=== PATIENT | female | born 1970 | race Caucasian/White ===

== ENCOUNTER → 2021-01-11 12:39 | Outpatient (BNVA) | payer MEDICAID, SELFPAY | PROVIDERS: PCP Nurse Practitioner Family; Visit Provider Emergency Medicine | DX: M25.522 Pain in left elbow (principal) | CPT/HCPCS: 73080 ==

== ENCOUNTER → 2021-02-03 10:42 | Outpatient (BNVA) | payer MEDICAID, SELFPAY | PROVIDERS: PCP Nurse Practitioner Family; Visit Provider Nurse Practitioner Family | DX: M25.532 Pain in left wrist (principal); M25.432 Effusion, left wrist | CPT/HCPCS: 73100 ==

== ENCOUNTER → 2021-05-07 10:08 | Outpatient (BNVA) | payer MEDICAID, SELFPAY | PROVIDERS: PCP Nurse Practitioner Family; Visit Provider Emergency Medicine | DX: M79.644 Pain in right finger(s) (principal) | CPT/HCPCS: 73130 ==

== ENCOUNTER → 2021-08-11 10:16 | Outpatient (BNVA) | payer MEDICAID, SELFPAY | PROVIDERS: PCP Nurse Practitioner Family; Visit Provider Nurse Practitioner Family | DX: Z20.822 Contact with and (suspected) exposure to COVID-19 (principal) | CPT/HCPCS: 87635 ==

== ENCOUNTER → 2022-03-04 09:35 | Outpatient (BNVA) | payer MEDICAID, SELFPAY | PROVIDERS: PCP Nurse Practitioner Family; Visit Provider Emergency Medicine | DX: M25.561 Pain in right knee (principal) | CPT/HCPCS: 73562 ==

== ENCOUNTER → 2022-07-16 10:38 | Outpatient (BNVA) | payer MEDICAID, SELFPAY | PROVIDERS: PCP Family Medicine; Visit Provider Family Medicine | DX: M25.512 Pain in left shoulder (principal) | CPT/HCPCS: 73030 ==

== ENCOUNTER → 2022-07-21 10:36 | Outpatient (BNVA) | payer MEDICAID, SELFPAY | PROVIDERS: PCP Family Medicine; Visit Provider Student in an Organized Health Care Education/Training Program | DX: M75.102 Unspecified rotator cuff tear or rupture of left shoulder, not specified as traumatic (principal) | CPT/HCPCS: 99203 ==

== ENCOUNTER 2022-09-11 10:08 | Outpatient (CLI) | payer MEDICAID, SELFPAY ==
--- NOTE | 2022-09-11 11:00 | MR_ITS ---
WS: [id number] MRI LEFT SHOULDER HISTORY: left shoulder pain, limited range of motion. No injury. COMPARISON: Radiograph 07/16/2022 TECHNIQUE: Multiplanar sequences of the shoulder joint are submitted. Mild narrowing of the AC joint. Osteophyte from the distal inferior clavicle encroaches upon the supr aspinatus myotendinous insertion with deformity. Significant impingement and deformity. No significan t subacromial impingement. No os acromion. Normal position of the biceps tendon. There is increased T 2 signal within the tendon consistent with a split tear at the bicipital groove. Moderate tendinopathy and thickening involving the supraspinatus tendon beginning distal to the encro achment by the clavicular osteophyte. Most significant tendinopathy at the insertion site. Fraying al mervin the articular surface. No muscle atrophy or edema. Intrasubstance degeneration in the anterior an d superior labrum. No definite tear is identified. MR/MR shoulder LT wo con* [id number] IMPRESSION: 1. Distal clavicular osteophyte encroaching upon the myotendinous insertion porras praspinatus tendon with deformity. 2. Moderate tendinopathy distal supraspinatus tendon. 3. Split tear biceps tendon in the bicipital groove. 4. Intrasubstance degeneration involving the anterior superior labrum. Cannot confirm tear.
== END 2022-09-11 10:09 | disposition home or self-care (01) ==
LOC: RAD 10:10
PROVIDERS: PCP Family Medicine; Visit Provider Student in an Organized Health Care Education/Training Program
DX: G89.29 Other chronic pain (principal); M25.512 Pain in left shoulder; M25.712 Osteophyte, left shoulder; S46.212A Strain of muscle, fascia and tendon of other parts of biceps, left arm, initial encounter; X58.XXXA Exposure to other specified factors, initial encounter
CPT/HCPCS: 73221

== ENCOUNTER → 2023-04-12 10:35 | Outpatient (BNVA) | payer MEDICAID, OTHER, SELFPAY | PROVIDERS: PCP Family Medicine; Visit Provider Nurse Practitioner Family | DX: S40.022A Contusion of left upper arm, initial encounter (principal); M89.8X3 Other specified disorders of bone, forearm; W19.XXXA Unspecified fall, initial encounter | CPT/HCPCS: 73090 ==

== ENCOUNTER → 2023-05-17 15:08 | Outpatient (BNVA) | payer MEDICAID, SELFPAY | PROVIDERS: PCP Family Medicine; Referring Provider Emergency Medicine; Visit Provider Emergency Medicine | DX: M25.50 Pain in unspecified joint (principal); Z82.61 Family history of arthritis | CPT/HCPCS: 73080; 73130; 73560; 85025; 86160; 86162; 86235; 86255; 86376; 86431 ==

== ENCOUNTER → 2023-07-20 08:53 | Outpatient (BNVA) | payer MEDICAID, SELFPAY | PROVIDERS: PCP Family Medicine; Referring Provider Family Medicine; Visit Provider Surgery | DX: R22.2 Localized swelling, mass and lump, trunk (principal) | CPT/HCPCS: 99204 ==

== ENCOUNTER 2023-07-26 11:03 | Day surgery (SDC) | payer MEDICAID, SELFPAY ==
[2023-07-26] VITALS (10 sets, daily range): BP systolic 91–113; BP diastolic 61–77; PULSE 58–78; RESP 12–23; TEMP 36.1–36.9; O2SAT 94–100
--- NOTE | 2023-07-26 11:10 | W.PM.OPSUD ---
Surgery/Procedure H&P Update DATE OF PROCEDURE: July 26, 2023 DATE H&P PERFORMED: 07/20/23 H&P UPDATE INFORMATION: I have reviewed H&P completed within last 30 days, I have examined patient prior to procedure and No changes to prior documentation PLANNED PROCEDURE: Operation Date: 07/26/23 12:35 Proposed Procedures p [id number] excision subcutaneous back massR22.2(Not Applicable) - Chris Fairchild DO
[2023-07-26] MEDS: sodium chloride 0.9% 1,000 ML 30 ML IV (11:34)
[2023-07-26] MEDS: ceFAZolin 2,000 MG in sodium chloride 0.9% (plus) 50 ML 100 MG IV (11:58)
[2023-07-26] MEDS: lidocaine-epi 2% 20 mL INJ INJECTION (12:19)
--- NOTE | 2023-07-26 12:24 | PM.OP ---
Operative Report Date of procedure: July 26, 2023 Pre-op diagnosis: Subcutaneous mass of back Post-op diagnosis: same Procedure done: Excision of subcutaneous mass of back Implants: None Specimens removed/disposition: Subcutaneous mass of back Surgeon: Chris Fairchild DO Anesthesia: General Estimated blood loss (mL): 5 Complications: None apparent Brief History: This very pleasant 53-year-old female who presented to my office with an enlarging subcutaneous mass of her back. It is causing her pain and she desired excision. The risk benefits were explained and documented. Procedure: Patient was wheeled operative room and remained on the hospital bed in the supine position. An LMA was placed by the department of anesthesia. Time was performed. All present were in agreement. The back and left flank were inspected prepped and draped in usual sterile fashion. 2% lidocaine with epinephrine was used to anesthetize the area over the subcutaneous mass. A 10 blade scalpel was then used to make a 3.5 cm transverse incision directly over the mass. Dissection was carried down to a cystic structure. The cystic structure was inadvertently entered and suctioned. Electrocautery was used to shell out the cystic structure. The specimen was entirely removed and passed off. Specimen measured 6 cm in greatest diameter. Hemostasis was achieved with electrocautery. Skin was closed with 3-0 nylon in a simple interrupted fashion. Patient tolerated procedure well.
--- NOTE | 2023-07-26 12:47 | ANES.PREANE2 ---
Pre-Anesthetic Assessment Height/Weight: Height 1.65 m Temp Pulse Resp BP Pulse Ox O2 Del Method O2 Flow Rate 98.4 F 78 16 113/71 99 Room Air 6 07/26/23 11:20 07/26/23 11:20 07/26/23 11:20 07/26/23 11:20 07/26/23 11:20 07/26/23 11:22 07/26/23 12:35 Operation Date: 07/26/23 12:35 Proposed Procedures p [id number] excision subcutaneous back massR22.2(Not Applicable) - Chris Fairchild DO Familial anesthetic complications: none Was Beta Jerry taken within 24 hours: N/A Was Clonidine taken within 24 hours: N/A Last intake: Intake Last Liquid Date 07/25/23 Last Liquid Time 22:00 Last Solid Date 07/25/23 Last Solid Time 13:00 Social Tobacco and No alcohol Exam alert, oriented x 3 and regular rate & rhythm Airway Submandibular: within normal limits Cervical ROM: within normal limits Mallampati: Class II Dentition: false Pulmonary Chronic Obstructive Pulmonary Disease Neuropsych Anxiety and Depression Anesthetic Plan ASA status: 3 Anesthesia: Choice Medications/Allergies Home Medications Medication Instructions Recorded Confirmed Last Taken Type ibuprofen 800 mg tablet 800 mg PO Q8H PRN pain #90 tabs 05/16/23 07/26/23 07/25/23 Rx sertraline 50 mg tablet 50 mg PO DAILY 90 days #90 tabs 06/02/23 07/23/23 07/25/23 Rx docusate sodium 100 mg capsule 100 mg PO BID #10 caps 07/26/23 Unknown Rx (Colace) tramadol 50 mg tablet 100 mg PO Q6H PRN pain #20 tabs 07/26/23 Unknown Rx Allergies Allergy/AdvReac Type Severity Reaction Status Date / Time codeine Allergy Severe ALGY-Anaphy Verified 07/26/23 11:08 laxis Current Medications Generic Name Dose Route Start Last Admin Trade Name Freq PRN Reason Stop Dose Admin Sodium Chloride 1,000 mls @ 30 mls/hr 07/26/23 11:15 07/26/23 11:34 Sodium Chloride 0.9% IV 07/27/23 11:14 30 mls/hr .Q24H JOANIE Administration PFSH Anesthesia Medical History Depression Elevated rheumatoid factor Family history of rheumatoid arthritis Left rotator cuff tear Psychiatric care Social History Smoking and tobacco/nicotine status: current every day tobacco/nicotine user cigarettes Packs smoked per day: 0.5 Alcohol intake: never Substance/Drug Use: never Current gender identity: Female Female Reproductive History Spontaneous abortions: No Data Anesthesia Cardiac Studies: No Data to Display
--- NOTE | 2023-07-26 12:49 | ANE.PACU2 ---
Inpatient post-anesthesia follow up: Airway intact: Yes Vital signs: Temperature 98.4 F Pulse Rate 78 Respiratory Rate 16 Blood Pressure 113/71 Pulse Oximetry 99 Oxygen Delivery Me thod Room Air Oxygen Flow Rate 6 Fraction of Inspir ed Oxygen Hydration adequate: Yes Nausea and vomiting: No Pain level: 2 Mental status: Baseline
== END 2023-07-26 13:55 | disposition home or self-care (01) ==
PROVIDERS: PCP Family Medicine; Visit Provider Surgery
PROC: (CPT 11406; principal; 2023-07-26 12:25)
DX: L72.0 Epidermal cyst (principal); J44.9 Chronic obstructive pulmonary disease, unspecified; F17.210 Nicotine dependence, cigarettes, uncomplicated
CPT/HCPCS: 11406; 88307; J0690; J7030

== ENCOUNTER 2023-08-05 10:56 | Outpatient (CLI) | payer MEDICAID, SELFPAY ==
--- NOTE | 2023-08-05 11:00 | MM_ITS ---
WS: [id number] BILATERAL SCREENING DIGITAL TOMOSYNTHESIS MAMMOGRAM WITH CAD HISTORY: Z12.39 - Encounter for other screening for malignant neop... COMPARISON: None available. Bilateral CC and MLO views with tomosynthesis and synthetic mammography submitted. Computer aided det ection analyzed. Breast composition: The breasts are heterogeneously dense, which may obscure small masses. No suspici ous masses, microcalcifications or architectural distortion. IMPRESSION: MM/[place] [id number] BI-RADS: 1-Negative FOLLOW UP: 1 Year Follow-up
== END 2023-08-05 10:57 | disposition home or self-care (01) ==
LOC: MOBLMAM 11:02
PROVIDERS: PCP Family Medicine; Visit Provider Family Medicine
DX: Z12.31 Encounter for screening mammogram for malignant neoplasm of breast (principal)
CPT/HCPCS: 77063; 77067

== ENCOUNTER → 2023-08-10 09:53 | Outpatient (BNVA) | payer MEDICAID, SELFPAY | PROVIDERS: PCP Family Medicine; Visit Provider Surgery | DX: Z98.890 Other specified postprocedural states (principal) | CPT/HCPCS: 99213 ==

== ENCOUNTER → 2023-08-25 10:27 | Outpatient (BNVA) | payer MEDICAID, SELFPAY | PROVIDERS: PCP Family Medicine; Visit Provider Family Medicine | DX: F34.1 Dysthymic disorder (principal); G56.00 Carpal tunnel syndrome, unspecified upper limb; M25.539 Pain in unspecified wrist | CPT/HCPCS: 73110 ==

== ENCOUNTER → 2023-10-08 13:09 | Outpatient (BNVA) | payer MEDICAID, SELFPAY | PROVIDERS: PCP Family Medicine; Visit Provider Specialist | DX: G56.01 Carpal tunnel syndrome, right upper limb (principal) | CPT/HCPCS: 95910; 95911 ==

== ENCOUNTER → 2023-10-21 13:06 | Outpatient (BNVA) | payer MEDICAID, SELFPAY | PROVIDERS: PCP Family Medicine; Referring Provider Family Medicine; Visit Provider Student in an Organized Health Care Education/Training Program | DX: G56.01 Carpal tunnel syndrome, right upper limb (principal); M65.4 Radial styloid tenosynovitis [de Quervain] | CPT/HCPCS: 99214 ==

== ENCOUNTER 2023-11-24 08:57 | Day surgery (SDC) | payer MEDICAID, SELFPAY ==
[2023-11-24 10:01] VITALS: BMI 19.1
[2023-11-24] MEDS: sodium chloride 0.9% 1,000 ML 30 ML IV (10:11)
[2023-11-24] MEDS: acetaminophen 1,000 MG/100 ML PIGGYBACK 400 MG IV (10:12)
[2023-11-24] MEDS: ketorolac 30 mg/mL INJ IVP (10:16)
--- NOTE | 2023-11-24 10:24 | ANES.PREANE2 ---
Pre-Anesthetic Assessment Height/Weight: Height 1.65 m Weight 52.163 kg O2 Del Method Room Air 11/24/23 10:01 Operation Date: 11/24/23 11:20 Proposed Procedures p Carpal Tunnel Release(Right) - Hilario Hoff DO s Dequervain Release(Right) - Hilario Hoff DO Familial anesthetic complications: None Was Beta Jerry taken within 24 hours: N/A Was Clonidine taken within 24 hours: N/A Last intake: Intake Last Liquid Date 11/23/23 Last Liquid Time 22:15 Last Solid Date 11/23/23 Last Solid Time 17:00 Social Tobacco and No alcohol Exam alert, oriented x 3, clear to auscultation bilaterally and regular rate & rhythm Airway Mallampati: Class II Dentition: other (no teeth) Neuropsych Neuropathy Anesthetic Plan ASA status: 1 Anesthesia: MAC Risk of > 500 ml blood loss (7ml/kg in children): No Medications/Allergies Home Medications Medication Instructions Recorded Confirmed Last Taken Type sertraline 50 mg tablet 50 mg PO DAILY 90 days #90 tabs 08/25/23 11/24/23 11/23/23 Rx cock up wrist splint #1 ea 09/04/23 10/26/23 Unknown Rx ibuprofen 800 mg tablet 800 mg PO Q8H PRN pain #90 tabs 11/03/23 11/23/23 11/23/23 Rx Allergies Allergy/AdvReac Type Severity Reaction Status Date / Time codeine Allergy Severe ALGY-Anaphy Verified 10/26/23 07:25 laxis Current Medications Generic Name Dose Route Start Last Admin Trade Name Freq PRN Reason Stop Dose Admin Sodium Chloride 1,000 mls @ 30 mls/hr 11/24/23 10:00 11/24/23 10:11 Sodium Chloride 0.9% IV 11/25/23 09:59 30 mls/hr .Q24H JOANIE Administration PFSH Anesthesia Medical History Carpal tunnel syndrome of right wrist Elevated rheumatoid factor Family history of rheumatoid arthritis Psychiatric care Depression Left rotator cuff tear Surgical History Hx of excision of mass 07/26 excision subcutaneous mass of back Dr Fairchild Social History Smoking and tobacco/nicotine status: current every day tobacco/nicotine user cigarettes Packs smoked per day: 0.5 Alcohol intake: never Substance/Drug Use: never Current gender identity: Female Female Reproductive History Spontaneous abortions: No Data Anesthesia Cardiac Studies: No Data to Display
--- NOTE | 2023-11-24 10:40 | P.HP_ITS ---
Same Day Surgery H&P Indication for Procedure/HPI DATE OF PROCEDURE: November 24, 2023 CHIEF COMPLAINT/INDICATIONFOR SURGICAL PROCEDURE: Right carpal tunnel syndrome, right wrist de Quervain's disease PREOP DIAGNOSIS: Right carpal tunnel syndrome, right wrist de Quervain's disease PLANNED PROCEDURE: Operation Date: 11/24/23 11:20 Proposed Procedures p Carpal Tunnel Release(Right) - Hilario Hoff DO s Dequervain Release(Right) - Hilario Hoff DO Medications/Allergies* Allergies/Adverse Reactions Allergy/AdvReac Type Severity Reaction Status Date / Time codeine Allergy Severe ALGY-Anaphy Verified 10/26/23 07:25 laxis Current Medications: Generic Name Dose Route Start Last Admin Trade Name Freq PRN Reason Stop Dose Admin Sodium Chloride 1,000 mls @ 30 mls/hr 11/24/23 10:00 11/24/23 10:11 Sodium Chloride 0.9% IV 11/25/23 09:59 30 mls/hr .Q24H JOANIE Administration Pertinent History/Comorbid Conditions* Medical History (Updated 11/10/23 @ 00:15 by Hilario Hoff DO) Carpal tunnel syndrome of right wrist Elevated rheumatoid factor Family history of rheumatoid arthritis Psychiatric care Depression Left rotator cuff tear Surgical History (Updated 08/10/23 @ 11:40 by Chris Fairchild DO) Hx of excision of mass 07/26 excision subcutaneous mass of back Dr Fairchild Social History Smoking and tobacco/nicotine status: current every day tobacco/nicotine user cigarettes Packs smoked per day: 0.5 Alcohol intake: never Substance/Drug Use: never Current gender identity: Female Pertinent Exam Findings alert, oriented x 3, operative site marked and procedure specific exam findings Right wrist tenderness to palpation over the first dorsal compartment with po sitive Angelica's, positive median nerve compression test positive Tinel's positive Phalen's of the right median nerve at the wrist Recommendations Surgery/Procedure today Other Plans: Proceed to the OR today for right carpal tunnel release, right de Quervain's release Coding Level of Care Code Acute Code for Chg Fwd
--- NOTE | 2023-11-24 10:40 | W.PM.OPSUD ---
Surgery/Procedure H&P Update DATE OF PROCEDURE: November 24, 2023 DATE H&P PERFORMED: 10/21/23 H&P UPDATE INFORMATION: I have examined patient prior to procedure and No changes to prior documentation PREOP DIAGNOSIS: Right carpal tunnel syndrome, right wrist de Quervain's disease PRIMARY INDICATION FOR PROCEDURE: Right carpal tunnel syndrome, right wrist de Quervain's disease PLANNED PROCEDURE: Operation Date: 11/24/23 11:20 Proposed Procedures p Carpal Tunnel Release(Right) - Hilario Hoff DO s Dequervain Release(Right) - Hilario Hoff DO
[2023-11-24] MEDS: ceFAZolin 2,000 MG in sodium chloride 0.9% (plus) 50 ML 100 MG IV (11:45)
[2023-11-24] MEDS: lidocaine-epi 1% 20 mL INJ INJECTION (12:08)
[2023-11-24] MEDS: ROPivacaine 0.5% SDV 30 mL 150 MG INJECTION (12:08)
--- NOTE | 2023-11-24 12:20 | W.PM.BPON ---
Date of Procedure: 11/24/2023 Surgeon: Hilario Hoff DO Clinical Nursing Instructor(s): MYA Green Procedure(s) performed: Right carpal tunnel release Right wrist de Quervain's release Findings of the procedure(s): Patient found to have right carpal tunnel syndrome as well as right wrist de Quervain's disease underwent procedure as planned without issues Estimated blood loss: 1 mL Specimen(s) removed: None Post-operative diagnosis: Right carpal tunnel syndrome, right wrist de Quervain's disease
--- NOTE | 2023-11-24 12:21 | PM.OP ---
Operative Report Date of procedure: November 24, 2023 Surgeon: Hilario Hoff DO Is/It Project Manager: MYA Green PERCHER was necessary for assistance in this case with arm positioning retraction and protection of neurovascular structures as well as assistance with instrumentation and wound closure and dressing application Procedure: Preoperative diagnosis right carpal tunnel syndrome Right wrist de Quervain's disease Post-op diagnosis: Same Procedure done: 1.?Right carpal tunnel?release 2. Right wrist de Quervain's release Surgeon: Hilario Hoff DO Anesthesia: MAC (Local) Estimated blood loss: [1]mL Tourniquet time [10]minutes IV fluids: See anesthesia?record Complications: None Findings: See operative?report narrative Condition: stable Disposition: same day Brief History: Patient is a pleasant [53year-old [female] with?right carpal tunnel syndrome and right wrist de Quervain's disease.? Patient has been worked up in the outpatient setting findings and physical examination consistent with this.? Patient nerve conduction studies consistent with carpal tunnel syndrome.? We detailed out patient's?risk benefits complication alternatives with surgical and nonsurgical treatment options. Through shared decision making, patient agrees to proceed with surgical intervention .? Patient understands and agrees with current plan.? All questions answered.? Procedure: Patient seen and evaluated in the preoperative holding area.? Consent was?reviewed and signed with patient.? Correct extremity was marked.? Patient was seen evaluated by the anesthesia department once cleared for surgery was brought back to the operative suite.? [facility] position all bony prominences were well-padded patient properly secured to the bed.??Right upper extremity was then placed onto an armboard.? A nonsterile tourniquet was applied to the?RIght upper arm.? Patient underwent anesthesia per the anesthesia department.? Patient's?Right upper extremity was then prepped and draped in standard orthopedic fashion.? Final timeout performed.? Patient?received appropriate preoperative antibiotics. Under sterile aseptic technique patient?received local anesthesia over the preplanned carpal tunnel incision site. Esmarch was used to exsanguinate the?Right upper extremity and tourniquet was insufflated to 250 mmHg. A standard mini open?Right carpal tunnel incision was made.? Starting distally at Mills's cardinal line in line with the fourth?ray extending proximally distal to the wrist crease centered over the carpal tunnel.? Sharp scalpel incision was made through skin and subcutaneous tissue.? Self-retaining?retractor was placed and the palmar fascia was identified.? This was then split longitudinally and direct visualization of the transverse carpal ligament was then made.? I then utilizing scalpel feathered through the transverse carpal ligament until I entered the floor of the transverse carpal tunnel ligament into the carpal tunnel.? Next I switched to dissection scissors and completed my?release of the transverse carpal ligament distally with care to protect the?recurrent motor branch.? I completely?released into the palmar fat and until no entrapment was noted distally.? Care was made to protect the superficial palmar arch during my distal dissection.?? Next I utilized a nasal speculum placed on top of the transverse carpal ligament and utilize this to?retract the subcutaneous fat and tissue and under direct loupe magnification was able to identify the transverse carpal ligament.? Next I then placed a [place] underneath the transverse carpal tunnel ligament to protect the contents of the carpal tunnel and subsequently utilizing dissection scissors under loupe magnification completely?released the transverse carpal ligament proximally into the median antebrachial fascia.? Care was made to protect the palmar cutaneous branch by keeping my scissors curved ulnarly.? Once completely?released, I then placed my [place] and had appropriate decompression of the carpal tunnel proximally as well as distally.? I then inspected the contents of the carpal tunnel which showed an hourglass shape of the median nerve showing its compression.? No masses were noted.? Tendons appeared healthy.? Wound was then thoroughly irrigated.? Next I then proceeded with the right wrist de Quervain's release. I marked out the first dorsal compartment a small longitudinal incision was made directly over this. Sharp scalpel incision was made through skin only switch to Littler dissection scissors and protected the superficial branch of the radial nerve as well as neurovascular structures. I then had direct visualization of the first dorsal compartment sharp scalpel incision I used to then simply incise the first dorsal compartment I switched dissection scissors to release this both proximally and distally to its entirety the EPB tendon did have a subsheath which was subsequently released as well. I then subsequently used a rag nail and mobilized each tendon that verify no areas of entrapment and this completed the right wrist de Quervain's release. Tourniquet deflated.? Hemostasis satisfactory with bipolar electrocautery.? I then closed the incision with interrupted nylon stitches.? Xeroform 4 x 4's and a bulky soft dressing was applied.? Patient was then awakened from anesthesia and taken to PACU in stable condition.? Patient tolerated procedure without complications. Disposition: Patient taken to PACU in stable condition?recovering well.? Dressing clean dry and intact.? Patient will?receive appropriate discharge instructions as well as pain medication postoperatively.? Patient to follow-up with me in the office in 2 weeks.? They understand they may be weightbearing as tolerated to the?right hand.? Patient should keep incision clean dry and intact.? Patient understands if any questions or concerns may contact the office.
[2023-11-24 12:32] VITALS: BP 94/47; PULSE 66; RESP 16; TEMP 36.1; O2SAT 98
[2023-11-24 12:37] VITALS: BP 98/46; PULSE 64; RESP 16; O2SAT 97
[2023-11-24 12:42] VITALS: BP 115/56; PULSE 64; RESP 16; O2SAT 98
[2023-11-24 12:45] VITALS: BP 114/55; PULSE 63; RESP 16; O2SAT 100
[2023-11-24 12:47] VITALS: BP 132/68; PULSE 65; RESP 16; TEMP 36.6; O2SAT 99
[2023-11-24 13:02] VITALS: BP 108/53; PULSE 58; RESP 17; O2SAT 98
--- NOTE | 2023-11-24 13:20 | ANE.PACU2 ---
Inpatient post-anesthesia follow up: Airway intact: Yes Vital signs: Temperature 98 F Pulse Rate 58 Respiratory Rate 17 Blood Pressure 108/53 Pulse Oximetry 98 Oxygen Delivery Me thod Room Air Oxygen Flow Rate Fraction of Inspir ed Oxygen Hydration adequate: Yes Nausea and vomiting: No Pain level: 1 Mental status: Baseline
== END 2023-11-24 13:20 | disposition home or self-care (01) ==
PROVIDERS: PCP Family Medicine; Visit Provider Student in an Organized Health Care Education/Training Program
PROC: (CPT 64721; principal; 2023-11-24 11:20)
PROC: (CPT 25000; 2023-11-24 11:20)
DX: G56.01 Carpal tunnel syndrome, right upper limb (principal); M65.4 Radial styloid tenosynovitis [de Quervain]; F17.210 Nicotine dependence, cigarettes, uncomplicated
CPT/HCPCS: 25000; 64721; J0131; J0690; J1885; J2704; J2795; J3010; J7030

== ENCOUNTER → 2023-12-09 09:11 | Outpatient (BNVA) | payer MEDICAID, SELFPAY | PROVIDERS: PCP Family Medicine; Visit Provider Physician Assistant | DX: Z98.890 Other specified postprocedural states (principal) | CPT/HCPCS: 99024 ==

== ENCOUNTER → 2023-12-24 16:24 | Outpatient (BNVA) | payer MEDICAID, SELFPAY | PROVIDERS: PCP Family Medicine; Visit Provider Emergency Medicine | DX: B34.9 Viral infection, unspecified (principal) | CPT/HCPCS: 87426 ==

== ENCOUNTER → 2024-07-25 13:55 | Outpatient (BNVA) | payer MEDICAID, SELFPAY | PROVIDERS: PCP Family Medicine; Visit Provider Family Medicine | DX: Z13.220 Encounter for screening for lipoid disorders (principal); Z13.6 Encounter for screening for cardiovascular disorders; Z13.1 Encounter for screening for diabetes mellitus; J44.9 Chronic obstructive pulmonary disease, unspecified; R76.8 Other specified abnormal immunological findings in serum | CPT/HCPCS: 80053; 80061; 85025; 85651; 86140 ==

== ENCOUNTER 2024-09-07 12:53 | Outpatient (CLI) | payer MEDICAID, SELFPAY ==
--- NOTE | 2024-09-07 13:00 | MM_ITS ---
WS: [id number] BILATERAL SCREENING DIGITAL TOMOSYNTHESIS MAMMOGRAM WITH CAD HISTORY: SCREENING COMPARISON: 08/05/2023 Bilateral CC and MLO views with tomosynthesis and synthetic mammography submitted. Computer aided det ection analyzed. Breast composition: The breasts are heterogeneously dense, which may obscure small masses. No suspici ous masses, microcalcifications or architectural distortion. Partially included pectoralis muscles, s imilar to the prior study. Probably due to difficulty positioning patient. Stable 5 mm mass central R IGHT breast. MM/MM scr BI tomosynthesis [id number] IMPRESSION: BI-RADS: 2 - Benign FOLLOW UP: 1 Year Follow-up
== END 2024-09-07 12:54 | disposition home or self-care (01) ==
PROVIDERS: PCP Family Medicine; Visit Provider Family Medicine
DX: Z12.31 Encounter for screening mammogram for malignant neoplasm of breast (principal); R92.333 Mammographic heterogeneous density, bilateral breasts; N63.41 Unspecified lump in right breast, subareolar
CPT/HCPCS: 77063; 77067

== ENCOUNTER → 2025-02-15 14:57 | Outpatient (BNVA) | payer MEDICAID, SELFPAY | PROVIDERS: PCP Family Medicine; Visit Provider Internal Medicine Rheumatology | DX: Z79.899 Other long term (current) drug therapy (principal) | CPT/HCPCS: 80076; 82306; 82565; 85025; 85651; 86140; 86480; 86704; 86803; 87340 ==

== ENCOUNTER → 2025-03-07 14:35 | Outpatient (BNVA) | payer MEDICAID, SELFPAY | PROVIDERS: PCP Family Medicine; Visit Provider Family Medicine | DX: J02.8 Acute pharyngitis due to other specified organisms (principal); B97.89 Other viral agents as the cause of diseases classified elsewhere; J98.8 Other specified respiratory disorders; B96.89 Other specified bacterial agents as the cause of diseases classified elsewhere | CPT/HCPCS: 87071; 87400; 87426; 87880 ==

== ENCOUNTER → 2025-03-30 09:52 | Outpatient (BNVA) | payer MEDICAID, SELFPAY | PROVIDERS: PCP Family Medicine; Visit Provider Internal Medicine Rheumatology | DX: Z79.899 Other long term (current) drug therapy (principal) | CPT/HCPCS: 80076; 82565; 85025; 85651; 86140 ==

== ENCOUNTER → 2025-05-29 09:46 | Outpatient (BNVA) | payer MEDICAID, SELFPAY | PROVIDERS: PCP Family Medicine; Visit Provider Internal Medicine Rheumatology | DX: Z79.899 Other long term (current) drug therapy (principal) | CPT/HCPCS: 80076; 82565; 85025; 85651; 86140 ==

== ENCOUNTER 2025-08-10 17:32 | Emergency (ER) | payer MEDICAID, SELFPAY ==
[2025-08-10 17:37] VITALS: BMI 17.2
--- OUTSIDE RECORDS SUMMARY | 2025-08-10 17:37 | XMS_ITS | Encounter Summary ---
Author Organization [facility] Address [address] [place] [address] Care Team Providers Care Pin Inserter Regulator Name Role Phone Evert Smith MD Primary Care Provider Encounter Details Date Type Department Care Team (Latest Contact Info) Description 05/15/2003 Outpatient Historical [facility] [address] 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
--- OUTSIDE RECORDS SUMMARY | 2025-08-10 17:37 | XMS_ITS | Encounter Summary ---
Author Organization [facility] Address [address] [place] [address] Care Team Providers Care Terrazzo Finisher Helper Name Role Phone Evert Smith MD Primary Care Provider Encounter Details Date Type Department Care Team (Latest Contact Info) Description 09/30/2000 Outpatient Historical 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
--- OUTSIDE RECORDS SUMMARY | 2025-08-10 17:37 | XMS_ITS | Encounter Summary ---
Author Organization [facility] Address [address] [place] [address] Care Team Providers Care Population Health Manager Name Role Phone Evert Smith MD Primary Care Provider Encounter Details Date Type Department Care Team (Latest Contact Info) Description 08/30/2000 Outpatient Historical [address] [phone] Estefanía Vergara MD [address] [place] [address], [phone] Gynecologic examination (Primary Dx); Special screening for malignant neoplasms of other sites Social History Tobacco Use Types Packs/Day Years Used Date Smoking Tobacco: Never Assessed Comments Unknown Sex and Gender Information Value Date Recorded Sex Assigned at Not on file 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
--- OUTSIDE RECORDS SUMMARY | 2025-08-10 17:37 | XMS_ITS | Encounter Summary ---
Author Organization [facility] Address [address] [place] [address] Care Team Providers Care Parker Name Role Phone Evert Smith MD Primary Care Provider Encounter Details Date Type Department Care Team (Latest Contact Info) Description 08/25/1999 Outpatient Historical [address] [phone] Estefanía Vergara MD [address] [place] [address], [phone] Dyspareunia (Primary Dx); Vaginitis and vulvovaginitis, unspecified Social History Tobacco Use Types Packs/Day Years Used Date Smoking Tobacco: Never Assessed Comments Unknown Sex and Gender Information Value Date Recorded Sex Assigned at Not on file 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
--- OUTSIDE RECORDS SUMMARY | 2025-08-10 17:37 | XMS_ITS | Encounter Summary ---
Author Organization [facility] Address [address] Robbins: [place] [address] Care Team Providers Care Mold Inspector Name Role Phone Evert Smith MD Primary Care Provider Encounter Details Date Type Department Care Team (Late st Contact Info) Description 11/19/1999 Outpatient Historical Estefanía Vergara MD 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
--- OUTSIDE RECORDS SUMMARY | 2025-08-10 17:37 | XMS_ITS | Encounter Summary ---
Author Organization [facility] Address [address] [place] [address] Care Team Providers Care Historiographer Name Role Phone Evert Smith MD Primary Care Provider [phone] Encounter Details Date Type Department Care Team (Latest Contact Info) Description 06/10/2005 Outpatient Historical [facility] Medicine [address] [phone] Sandoval Ribeiro, CAFE ASSISTANT [address] [place] [address] Sprain lumbar region (Primary Dx) Social History Tobacco Use Types Packs/Day Years Used Date Smoking Tobacco: Never Assessed Comments Unknown Sex and Gender Information Value Date Recorded Sex Assigned at Not on file Legal Sex Female 4:38 AM DEPARTMENT COORDINATOR Gender Identity Not on file Sexual Orientation Not on file documented as of this encounter Plan of Treatment Not on file documented as of this encounter Visit Diagnoses Diagnosis Sprain lumbar region- Primary Sprain of lumbar region documented in this encounter Care Teams Historiographer Relationship Specialty Start Date End Date Evert Smith MD PCP - General Family Practice 10/06/10 documented as of this encounter
--- OUTSIDE RECORDS SUMMARY | 2025-08-10 17:37 | XMS_ITS | Encounter Summary ---
Author Organization [facility] Address [address] [place] [address] Care Team Providers Care Manager Test Name Role Phone Evert Smith MD Primary Care Provider Encounter Details Date Type Department Care Team (Latest Contact Info) Description 10/29/2000 Outpatient Historical [address] [phone] Estefanía Vergara MD [address] [place] [address], [address] Other abnormal clinical finding (Primary Dx); Dysthymic disorder; Generalized anxiety disorder Social History Tobacco Use Types Packs/Day Years Used Date Smoking Tobacco: Never Assessed Comments Unknown Sex and Gender Information Value Date Recorded Sex Assigned at Not on file Legal Sex Female 4:38 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
--- OUTSIDE RECORDS SUMMARY | 2025-08-10 17:37 | XMS_ITS | Encounter Summary ---
Author Organization [facility] Address [address] [place] [address] Care Team Providers Care Geosciences Associate Professor Name Role Phone Evert Smith MD Primary Care Provider Encounter Details Date Type Department Care Team (Latest Contact Info) Description 11/19/1999 Outpatient Historical [address] [phone] Estefanía Vergara MD [address] [place] [address], [address] Abdominal pain, unspecified site (Primary Dx); Unspecified inflammatory disease of female pelvic organs and tissues; Other disorder of menstruation and other abnormal bleeding from female genital tract Social History Tobacco Use Types Packs/Day Years Used Date Smoking Tobacco: Never Assessed Comments Unknown Sex and Gender Information Value Date Recorded Sex Assigned at Not on file Legal Sex Female 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
--- OUTSIDE RECORDS SUMMARY | 2025-08-10 17:37 | XMS_ITS | Encounter Summary ---
Author Organization [facility] Address [address] Robbins: [place] [address] Care Team Providers Care Project Landscape Architect Name Role Phone Evert Smith MD Primary Care Provider Encounter Details Date Type Department Care Team (Late st Contact Info) Description 01/26/2002 Outpatient Historical Non-Staff, Physician NO ADDRESS ON FILE Social History Tobacco Use Types Packs/Day Years Used Date Smoking Tobacco: Never Assessed Comments Unknown Sex and Gender Information Value Date Recorded Sex Assigned at Not on file Legal Sex Female 4:38 AM HEALTHCARE REPRESENTATIVE Gender Identity Not on file Sexual Orientation Not on file documented as of this encounter Plan of Treatment Not on file documented as of this encounter Visit Diagnoses Not on filedocumented in this encounter Care Teams Project Landscape Architect Relationship Specialty Start Date End Date Evert Smith MD PCP - General Family Practice 10/06/10 documented as of this encounter
--- OUTSIDE RECORDS SUMMARY | 2025-08-10 17:37 | XMS_ITS | Encounter Summary ---
Author Organization [facility] Address [address] Robbins: [place] [address] Care Team Providers Care Quality Control Lead Name Role Phone Evert Smith MD Primary Care Provider Encounter Details Date Type Department Care Team (Late st Contact Info) Description 06/02/2000 Outpatient Historical Estefanía Vergara MD [address] [address] Social History Tobacco Use Types Packs/Day Years Used Date Smoking Tobacco: Never Assessed Comments Unknown Sex and Gender Information Value Date Recorded Sex Assigned at Not on file Legal Sex Female 4:38 AM APPOINTMENT SPECIALIST Gender Identity Not on file Sexual Orientation Not on file documented as of this encounter Plan of Treatment Not on file documented as of this encounter Visit Diagnoses Not on filedocumented in this encounter Care Teams Quality Control Lead Relationship Specialty Start Date End Date Evert Smith MD PCP - General Family Practice 10/06/10 documented as of this encounter
--- OUTSIDE RECORDS SUMMARY | 2025-08-10 17:37 | XMS_ITS | Encounter Summary ---
Author Organization [facility] Address [address] Robbins: [place] [address] Care Team Providers Care Book Reviewer Name Role Phone Evert Smith MD Primary Care Provider [phone] Encounter Details Date Type Department Care Team (Late st Contact Info) Description 08/09/2000 Outpatient Historical Estefanía Vergara MD 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
--- OUTSIDE RECORDS SUMMARY | 2025-08-10 17:37 | XMS_ITS | Encounter Summary ---
Author Organization [facility] Address [address] [place] [address] Care Team Providers Care Squeak Rattle And Leak Repairer Name Role Phone Evert Smith MD Primary Care Provider Encounter Details Date Type Department Care Team (Latest Contact Info) Description 08/05/2001 Outpatient Historical [address] [phone] Estefanía Vergara MD [address] [place] [address], [address] URINARY FREQUENCY (Primary Dx); FLATUL/ERUCTAT/GAS PAIN Social History Tobacco Use Types Packs/Day Years Used Date Smoking Tobacco: Never Assessed Comments Unknown Sex and Gender Information Value Date Recorded Sex Assigned at Not on file Legal Sex Female 4:38 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
--- OUTSIDE RECORDS SUMMARY | 2025-08-10 17:37 | XMS_ITS | Encounter Summary ---
Author Organization [facility] Address [address] [place]: [place] [address] Care Team Providers Care General Merchandise Salesperson Name Role Phone Evert Smith MD Primary Care Provider [phone] Encounter Details Date Type Department Care Team (Late st Contact Info) Description 08/30/2000 Outpatient Historical Estefanía Vergara MD 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
--- OUTSIDE RECORDS SUMMARY | 2025-08-10 17:37 | XMS_ITS | Encounter Summary ---
Author Organization [facility] Address [address] [place] [address] Care Team Providers Care Wet Process Head Miller Name Role Phone Evert Smith MD Primary Care Provider Encounter Details Date Type Department Care Team (Latest Contact Info) Description 04/20/2001 Outpatient Historical [address], [place] [phone] Evert Smith MD [address], [place] [phone] Sprain thoracic region (Primary Dx); Sprain lumbar region Social History Tobacco Use Types Packs/Day Years Used Date Smoking Tobacco: Never Assessed Comments Unknown Sex and Gender Information Value Date Recorded Sex Assigned at Not on file Legal Sex Female 4:38 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
--- OUTSIDE RECORDS SUMMARY | 2025-08-10 17:37 | XMS_ITS | Clinical Summary ---
Author Organization [facility] Address [address] [place] [address] Care Team Providers Care Computer Programmer Chief Name Role Phone Evert Smith MD Primary Care Provider Allergies Active Allergy Reactions Criticality Noted Date Comments Codeine Anaphylaxis High 11/29/2009 Medications albuterol 90 mcg/Actuation Inhalation HFAA inhalerIndication s:Acute bronchitis with bronchospasm Take 2 Puffs by inhalation every 4 hours as needed for Other (See Comment) (coughing or wheezing). 6.7 Gram 0 3 Active Active Problems Problem Noted Date Diagnosed Date LBP (low back pain) 12/18/2010 DDD (degenerative disc disease), lumbar 12/19/19 11 Overview (12/18/2010): L4-5, L5-S1 Herniated lumbar intervertebral disc 12/18/2010 Overview (12/18/2010): To left at L4-5 Thoracic or lumbosacral neuritis or radiculitis 12/18/2010 Overview (12/18/2010): Mild LLE Dyspareunia 11/29/2009 Dysmenorrhea 11/29/2009 Tobacco use disorder 11/29/2009 Urinary frequency 11/29/2009 Immunizations Immunization Administration Dates Next Due (TDVAX)(7 YRS UP) TETANUS AN D DIPHTHERIA TOXOIDS, ADSORBED (2 LF OF TETANUS TOXOID AND 2 LF OF DIPHTHERIA TOXOID), 0.5ML (PF), IM 04/04/2004 Dt Dtp Dtap Vaccine 09/07/1998 Family History Medical History Relation Name Comments Heart Disease Father Heart Disease Mother Relation Name Status Comments Father Alive Mother Social History Tobacco Use Types Packs/Day Years Used Date Smoking Tobacco: Every Day Cigarettes 0.3 9 Smokeless Tobacco: Never Alcohol Use Standard Drinks/Week Comments No 0 (1 standard drink = 0.6 oz pur e alcohol) Comments No Sex and Gender Information Value Date Recorded Sex Assigned at Not on file Legal Sex Female 4:38 AM COMMUNITY AMBASSADOR Gender Identity Not on file Sexual Orientation Not on file Last Filed Vital Signs Vital Sign Reading Time Taken Comments Blood Pressure 89/57 08/02/2019 1:25 PM CDT Pulse 70 08/02/2019 1:25 PM CDT Temperature 36.4 C (97.6 F) 12/20/2012 10:38 AM CDT Respiratory Rate 16 12/20/2012 10:38 AM CDT Oxygen Saturation 98% 04/02/2011 2:29 PM CDT Inhaled Oxygen Concentration - - Weight 52.2 kg (115 lb) 08/02/2019 1:25 PM CDT Height 162.6 cm (5' 4 ) 08/02/2019 1:25 PM CDT Body Mass Index 19.74 08/02/2019 1:25 PM CDT Plan of Treatment Health Maintenance Due Date Last Done Comments HEPATITIS B VACCINES (1 of 3 - 19+ 3-dose series) 01/23/1991 HPV/Cotest (21-29) 01/23/1993 HPV/Cotest (30-65) 01/23/2002 BREAST CANCER SCREENING 2012 DTAP/TDAP/TD VACCINES (3 - Tdap) 04/04/2014 04/04/20 04, 09/07/1998 CERVICAL CANCER SCREENING 12/21/2015 PAP SMEAR 12/21/2015 12/20/2012, 11/29/2009 COLORECTAL SCREENING 01/23/2017 Colorectal Cancer Screening 01/23/2017 FIT-DNA Q 3 years 01/23/2017 FIT/FOBT Q 1 year 01/23/2017 08/30/2000 Flex Sig/CT Colonography Q 5 years 01/23/2017 ZOSTER VACCINE (1 of 2) 01/23/2022 INFLUENZA VACCINE (#1) 2025 Procedures Procedure Name Priority Date/Time Associated Diagnosis Comments CERV/VAG CYTOPATH, THIN PREP Routine 12/20/2012 2:00 PM CDT from Last 3 Months or Most Recently Relevant to Health Maintenance Results * CERVICAL OR VAGINAL CYTOPATH, THIN PREP (12/20/2012 2:00 PM CDT) PATHOLOGY/CY TOLOGY REPORT [facility]atomic Path[facility] Dept [address] [address] Patient: SUZANNE POLLACK Accn No: [id number] , [id number] Collected: 12/20/2012 2:00:00 PM All cases except those with a DP prefix are performed by pathologists from [facility] at [facility]. Case type DP is performed by Dr. Jorge Martinez, [facility], [facility], [address], [place] [address] (CLIA #[id number]) (Ph. [phone]). CYTOLOGY TEMPERING MACHINE OPERATOR FINAL REPORT - - THIN PREP PAP History Specimen Type: Endocervical LMP: 12/20/12 HX OF ABNORMAL BLEEDING Previous Pap History: 2009 within normal limits Specimen Adequacy Unsatisfactory for interpretation. The smear shows excessive obscuring blood. Diagnosis UNSATISFACTORY FOR INTERPRETATION. Obscuring blood present. Mechanical Technologist/ ADAM MORRIS Pathologist: 12/26/12 Completed by: Marah Hill M.D. (Electronically signed by) 12/27/12 Additional Diagnosis Endometrial cells present in a woman > 40 years of age. Comment The finding of endometrial cells in women greater than or equal to 40 years of age might be an indication for endometrial sampling, however, this decision should be made in the context of clinical symptoms. REV:DPD Important Information About PAP Smears The Pap smear is associated with a low but well-documented and probably irreducible false negative rate of up to 10%. Additionally, the false positive rate for a diagnosis of invasive carcinoma or HSIL has been estimated to be approximately 1-10%. Therefore, any visible lesion on the cervix should be biopsied regardless of Pap smear findings. HPV Testing off the Thin Prep vial can be done as a means of further evaluating a Thin Prep Report. For information about ordering the HPV test, phone Virology at . Treatment or follow-up recommendations (if any) that are contained within this report are based upon general recommendations as contained in 2001 Consensus Guidelines For Cervical Cytological Abnormalities JEREL: January 25, 2002, and are provided as a general guideline rather than as a specific recommendation. Final decisions about the most appropriate treatment and follow-up should be made on an individualized basis by the treating physician in consultation with his/her patient. [facility] 12/20/2012 2:00 PM CDT Pavel Rodriguez MD PATHOLOGY/CYTOLOGY ORDERABLES E dited INTERFACE SYSTEM Refer to clinic/hospital department [facility] CLIA# [id number] [address] [place] [address] from Last 3 Months or Most Recently Relevant to Health Maintenance Insurance MEDICAID [place] Care Teams Computer Programmer Chief Relationship Specialty Start Date End Date Evert Smith MD PCP - General Family Practice 10/06/10
--- OUTSIDE RECORDS SUMMARY | 2025-08-10 17:37 | XMS_ITS | Encounter Summary ---
Author Organization [facility] Address [address] [place] [address] Care Team Providers Care [place] Actor Name Role Phone Evert Smith MD Primary Care Provider Encounter Details Date Type Department Care Team (Latest Contact Info) Description 11/29/2000 Outpatient Historical [address] [phone] Estefanía Vergara MD [address] [place] [address], [address] Esophageal reflux (Primary Dx); Dysthymic disorder; Generalized anxiety disorder Social History Tobacco Use Types Packs/Day Years Used Date Smoking Tobacco: Never Assessed Comments Unknown Sex and Gender Information Value Date Recorded Sex Assigned at Not on file Legal Sex Female 4:38 AM DIAL REFINISHER Gender Identity Not on file Sexual Orientation Not on file documented as of this encounter Plan of Treatment Not on file documented as of this encounter Visit Diagnoses Diagnosis Esophageal reflux- Primary Dysthymic disorder Generalized anxiety disorder documented in this encounter Care Teams [place] Actor Relationship Specialty Start Date End Date Evert Smith MD PCP - General Family Practice 10/06/10 documented as of this encounter
--- OUTSIDE RECORDS SUMMARY | 2025-08-10 17:37 | XMS_ITS | Encounter Summary ---
Author Organization [facility] Address [address] [place] [address] Care Team Providers Care Tool Crib Manager Name Role Phone Evert Smith MD Primary Care Provider Encounter Details Date Type Department Care Team (Latest Contact Info) Description 03/22/2001 Outpatient Historical [facility] Medicine [address] [phone] Adry Coto MD [address] [place] [phone] Acute bronchitis (Primary Dx) Social History Tobacco Use Types Packs/Day Years Used Date Smoking Tobacco: Never Assessed Comments Unknown Sex and Gender Information Value Date Recorded Sex Assigned at Not on file Legal Sex Female 4:38 AM EMBOSSING PRESS OPERATOR APPRENTICE Gender Identity Not on file Sexual Orientation Not on file documented as of this encounter Plan of Treatment Not on file documented as of this encounter Visit Diagnoses Diagnosis Acute bronchitis- Primary documented in this encounter Care Teams Tool Crib Manager Relationship Specialty Start Date End Date Evert Smith MD PCP - General Family Practice 10/06/10 documented as of this encounter
--- OUTSIDE RECORDS SUMMARY | 2025-08-10 17:37 | XMS_ITS | Encounter Summary ---
Author Organization [facility] Address [address] [place] [address] Care Team Providers Care Traffic Control Specialist Name Role Phone Evert Smith MD Primary Care Provider Encounter Details Date Type Department Care Team (Latest Contact Info) Description 08/09/2000 Outpatient Historical [address] [phone] Estefanía Vergara MD [address] [place] [address], [address] Esophageal reflux (Primary Dx); Sprain of ankle, unspecified site Social History Tobacco Use Types Packs/Day Years Used Date Smoking Tobacco: Never Assessed Comments Unknown Sex and Gender Information Value Date Recorded Sex Assigned at Not on file Legal Sex Female 4:38 AM RESOURCE ECONOMIST Gender Identity Not on file Sexual Orientation Not on file documented as of this encounter Plan of Treatment Not on file documented as of this encounter Visit Diagnoses Diagnosis Esophageal reflux- Primary Sprain of ankle, unspecified site documented in this encounter Care Teams Traffic Control Specialist Relationship Specialty Start Date End Date Evert Smith MD PCP - General Family Practice 10/06/10 documented as of this encounter
--- OUTSIDE RECORDS SUMMARY | 2025-08-10 17:37 | XMS_ITS | Encounter Summary ---
Author Organization [facility] Address [address] [place] [address] Care Team Providers Care Kid Club Attendant Name Role Phone Evert Smith MD Primary Care Provider Encounter Details Date Type Department Care Team (Latest Contact Info) Description 07/21/2000 Outpatient Historical [address] [phone] Estefanía Vergara MD [address] [place] [address] Other general medical examination for administrative purposes (Primary Dx) Social History Tobacco Use Types Packs/Day Years Used Date Smoking Tobacco: Never Assessed Comments Unknown Sex and Gender Information Value Date Recorded Sex Assigned at Not on file Legal Sex Female 4:38 AM SHOE PLANNER Gender Identity Not on file Sexual Orientation Not on file documented as of this encounter Plan of Treatment Not on file documented as of this encounter Visit Diagnoses Diagnosis Other general medical examination for administrative purposes- Primary documented in this encounter Care Teams Kid Club Attendant Relationship Specialty Start Date End Date Evert Smith MD PCP - General Family Practice 10/06/10 documented as of this encounter
--- OUTSIDE RECORDS SUMMARY | 2025-08-10 17:37 | XMS_ITS | Encounter Summary ---
Author Organization [facility] Address [address] [place] [address] Care Team Providers Care Lens Polisher Name Role Phone Evert Smith MD Primary Care Provider Encounter Details Date Type Department Care Team (Latest Contact Info) Description 07/18/1998 Outpatient Historical [facility] Medicine [address] [phone] Adry Coto MD [address] [place] [phone] General counseling for prescription of oral contraceptives (Primary Dx) Social History Tobacco Use Types Packs/Day Years Used Date Smoking Tobacco: Never Assessed Comments Unknown Sex and Gender Information Value Date Recorded Sex Assigned at Not on file Legal Sex Female 4:38 AM MERCHANDISE PICKUP/RECEIVING ASSOCIATE Gender Identity Not on file Sexual Orientation Not on file documented as of this encounter Plan of Treatment Not on file documented as of this encounter Visit Diagnoses Diagnosis General counseling for prescription of oral contraceptives- Primary documented in this encounter Care Teams Lens Polisher Relationship Specialty Start Date End Date Evert Smith MD PCP - General Family Practice 10/06/10 documented as of this encounter
--- OUTSIDE RECORDS SUMMARY | 2025-08-10 17:37 | XMS_ITS | Encounter Summary ---
Author Organization [facility] Address [address] [place] [address] Care Team Providers Care Web Analytics Specialist Name Role Phone Evert Smith MD Primary Care Provider Encounter Details Date Type Department Care Team (Late st Contact Info) Description 09/09/2006 Outpatient Historical [address] [phone] Social History Tobacco Use Types Packs/Day Years Used Date Smoking Tobacco: Never Assessed Comments Unknown Sex and Gender Information Value Date Recorded Sex Assigned at Not on file Legal Sex Female 4:38 AM NICKEL OPERATOR Gender Identity Not on file Sexual Orientation Not on file documented as of this encounter Plan of Treatment Not on file documented as of this encounter Visit Diagnoses Not on filedocumented in this encounter Care Teams Web Analytics Specialist Relationship Specialty Start Date End Date Evert Smith MD PCP - General Family Practice 10/06/10 documented as of this encounter
--- OUTSIDE RECORDS SUMMARY | 2025-08-10 17:37 | XMS_ITS | Encounter Summary ---
Author Organization [facility] Address [address] [place] [address] Care Team Providers Care Solution Design And Analysis Manager Name Role Phone Evert Smith MD Primary Care Provider Encounter Details Date Type Department Care Team (Latest Contact Info) Description 07/30/1998 Outpatient Historical [facility] Medicine [address] [phone] Adry Coto MD [address] [place] [phone] General counseling for prescription of oral contraceptives (Primary Dx) Social History Tobacco Use Types Packs/Day Years Used Date Smoking Tobacco: Never Assessed Comments Unknown Sex and Gender Information Value Date Recorded Sex Assigned at Not on file Legal Sex Female 4:38 AM 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
--- OUTSIDE RECORDS SUMMARY | 2025-08-10 17:37 | XMS_ITS | Encounter Summary ---
Author Organization [facility] Address [address] [place] [address] Care Team Providers Care Shock Absorber Installer Name Role Phone Evert Smith MD Primary Care Provider Encounter Details Date Type Department Care Team (Latest Contact Info) Description 06/20/1998 Outpatient Historical [facility] Medicine [address] [phone] Adry Coto MD [address] [place] [phone] General counseling for prescription of oral contraceptives (Primary Dx) Social History Tobacco Use Types Packs/Day Years Used Date Smoking Tobacco: Never Assessed Comments Unknown Sex and Gender Information Value Date Recorded Sex Assigned at Not on file Legal Sex Female 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
--- OUTSIDE RECORDS SUMMARY | 2025-08-10 17:37 | XMS_ITS | Encounter Summary ---
Author Organization [facility] Address [address] [place] [address] Care Team Providers Care Seo Consultant Name Role Phone Evert Smith MD Primary Care Provider [phone] Encounter Details Date Type Department Care Team (Latest Contact Info) Description 05/22/[address] [facility] Medicine [address] [phone] Sandoval Ribeiro, HOTBED OPERATOR [address] [place] [address] BACKACHE NOS (Primary Dx); Sprain lumbar region Social History Tobacco Use Types Packs/Day Years Used Date Smoking Tobacco: Never Assessed Comments Unknown Sex and Gender Information Value Date Recorded Sex Assigned at Not on file Legal Sex Female 4:38 AM FIRE MANAGEMENT SPECIALIST Gender Identity Not on file Sexual Orientation Not on file documented as of this encounter Plan of Treatment Not on file documented as of this encounter Visit Diagnoses Diagnosis Backache, unspecified- Primary Sprain lumbar region Sprain of lumbar region documented in this encounter Care Teams Seo Consultant Relationship Specialty Start Date End Date Evert Smith MD PCP - General Family Practice 10/06/10 documented as of this encounter
--- OUTSIDE RECORDS SUMMARY | 2025-08-10 17:37 | XMS_ITS | Encounter Summary ---
Author Organization [facility] Address [address] [place] [address] Care Team Providers Care Consumer Marketing Manager Name Role Phone Evert Smith MD Primary Care Provider Encounter Details Date Type Department Care Team (Latest Contact Info) Description 01/10/2001 Outpatient Historical [address] [phone] Estefanía Vergara MD [address] [place] [phone] Dysthymic disorder (Primary Dx) Social History Tobacco Use Types Packs/Day Years Used Date Smoking Tobacco: Never Assessed Comments Unknown Sex and Gender Information Value Date Recorded Sex Assigned at Not on file Legal Sex Female 4:38 AM 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
--- OUTSIDE RECORDS SUMMARY | 2025-08-10 17:37 | XMS_ITS | Encounter Summary ---
Author Organization [facility] Address [address] [place] [address] Care Team Providers Care Novelty Balloon Assembler And Packer Name Role Phone Evert Smith MD Primary Care Provider Encounter Details Date Type Department Care Team (Latest Contact Info) Description 04/04/2004 Outpatient Historical [facility] Medicine [address] [phone] Adry Coto MD [address] [place] [phone] CONTUSION OF LOWER LEG (Primary Dx); VACCINE FOR TETANUS/DIPHTERIA Social History Tobacco Use Types Packs/Day Years Used Date Smoking Tobacco: Never Assessed Comments Unknown Sex and Gender Information Value Date Recorded Sex Assigned at Not on file Legal Sex Female 4:38 AM SOFTWARE CONFIGURATION SPECIALIST Gender Identity Not on file Sexual Orientation Not on file documented as of this encounter Plan of Treatment Not on file documented as of this encounter Visit Diagnoses Diagnosis Contusion of lower leg- Primary Need for prophylactic vaccination with tetanus-diphtheria (Td) documented in this encounter Care Teams Novelty Balloon Assembler And Packer Relationship Specialty Start Date End Date Evert Smith MD PCP - General Family Practice 10/06/10 documented as of this encounter
--- OUTSIDE RECORDS SUMMARY | 2025-08-10 17:37 | XMS_ITS | Encounter Summary ---
Author Organization [facility] Address [address] [place] [address] Care Team Providers Care Commercial Lines Sales Executive Name Role Phone Evert Smith MD Primary Care Provider Encounter Details Date Type Department Care Team (Latest Contact Info) Description 06/02/2000 Outpatient Historical [address] [phone] Estefanía Vergara MD [address] [place] [address], [phone] Allergy, unspecified not elsewhere classified (Primary Dx); Dyspareunia; Unspecified inflammatory disease of female pelvic organs and tissues Social History Tobacco Use Types Packs/Day Years Used Date Smoking Tobacco: Never Assessed Comments Unknown Sex and Gender Information Value Date Recorded Sex Assigned at Not on file Legal Sex Female 4:38 AM INTENSIVIST Gender Identity Not on file Sexual Orientation Not on file documented as of this encounter Plan of Treatment Not on file documented as of this encounter Visit Diagnoses Diagnosis Allergy, unspecified not elsewhere classified- Primary Dyspareunia Unspecified inflammatory disease of female pelvic organs and tissues documented in this encounter Care Teams Commercial Lines Sales Executive Relationship Specialty Start Date End Date Evert Smith MD PCP - General Family Practice 10/06/10 documented as of this encounter
--- OUTSIDE RECORDS SUMMARY | 2025-08-10 17:37 | XMS_ITS | Encounter Summary ---
Author Organization [facility] Address [address] [place] [address] Care Team Providers Care Account Manager Name Role Phone Evert Smith MD Primary Care Provider Encounter Details Date Type Department Care Team (Latest Contact Info) Description 02/11/2000 Outpatient Historical [address] [phone] Estefanía Vergara MD [address] [place] [address], [phone] Sprain of hand, unspecified site (Primary Dx) Social History Tobacco Use Types Packs/Day Years Used Date Smoking Tobacco: Never Assessed Comments Unknown Sex and Gender Information Value Date Recorded Sex Assigned at Not on file Legal Sex Female 4:38 AM ASSISTANT CROSS COUNTRY COACH Gender Identity Not on file Sexual Orientation Not on file documented as of this encounter Plan of Treatment Not on file documented as of this encounter Visit Diagnoses Diagnosis Sprain of hand, unspecified site- Primary documented in this encounter Care Teams Account Manager Relationship Specialty Start Date End Date Evert Smith MD PCP - General Family Practice 10/06/10 documented as of this encounter
--- OUTSIDE RECORDS SUMMARY | 2025-08-10 17:37 | XMS_ITS | Encounter Summary ---
Author Organization [facility] Address [address] [place] [address] Care Team Providers Care Tier Truck Driver Name Role Phone Evert Smith MD Primary Care Provider Encounter Details Date Type Department Care Team (Latest Contact Info) Description 02/14/2001 Outpatient Historical [address] [phone] Estefanía Vergara MD [address] [place] [address], [phone] Dysthymic disorder (Primary Dx); Generalized anxiety disorder; Other malaise and fatigue Social History Tobacco Use Types Packs/Day Years Used Date Smoking Tobacco: Never Assessed Comments Unknown Sex and Gender Information Value Date Recorded Sex Assigned at Not on file Legal Sex Female 4:38 AM HELICOPTER PILOT Gender Identity Not on file Sexual Orientation Not on file documented as of this encounter Plan of Treatment Not on file documented as of this encounter Visit Diagnoses Diagnosis Dysthymic disorder- Primary Generalized anxiety disorder Other malaise and fatigue documented in this encounter Care Teams Tier Truck Driver Relationship Specialty Start Date End Date Evert Smith MD PCP - General Family Practice 10/06/10 documented as of this encounter
[2025-08-10 17:50] VITALS: BP 104/68; PULSE 93; RESP 16; TEMP 37.1; O2SAT 96
--- NOTE | 2025-08-10 18:09 | ED.C_ITS ---
HPI - Psych General: Chief Complaint: Psychiatric Symptoms Stated Complaint: SI Time Seen by Provider: 08/10/25 17:35 Source: patient, EMS and old records reviewed Mode of arrival: EMS Limitations: no limitations History of Present Illness: Patient is a 55-year-old female with past medical history of depression who was brought into the emergency department by ambulance for reported suicidal ideations. Patient tells me she is not suicidal, she only made statements so that she could leave a situation she did not want to be in. She tells me that at a family ember's house she was being told that she was a terrible mother, in regards to recently daughter of hers. Patient states that this made her extremely depressed that she made suicidal statements. No specific plan, she states that she would not do anything, and she sees [facility] regularly. She does note that she thinks her medications are starting to not work, but again notes that she has an upcoming appointment to address this. She states that she does not need admission to the neuropsychiatric unit. She has no affidavits on her chart. She does not endorse any homicidal ideations or hallucinations of any kind. She is calm and cooperative at this time, alert and oriented x 4. No other symptoms reported. Associated symptoms: Reports depression; Deny auditory hallucinations, visual hallucinations, homicidal ideation or suicidal ideation Related Data Previous Rx's ?Medication ?Instructions ?Recorded ibuprofen 800 mg tablet 800 mg PO Q8H #60 tabs 11/14 ipratropium 20 mcg-albuterol 100 1 puff inhalation QID PRN 11/14/24 mcg/actuation mist for inhalation shortness of breath or wheezing #4 (Combivent Respimat) grams trazodone 50 mg tablet 25 mg (1/2 x 50 mg) PO .at b edtime 01/09/25 #30 tabs omeprazole 20 mg capsule,delayed 20 mg PO DAILY #30 ca ps 02/15/25 release folic acid 1 mg tablet 1 mg PO DAILY #30 tabs 04/04 methotrexate sodium 2.5 mg tablet 15 mg (6 x 2.5 mg) P O Q7D #30 tabs 04/04/25 prednisone 10 mg tablet See Rx Instructions .Route 0 04/04/25 .COMPLEX joint pain #90 tabs citalopram 20 mg tablet 20 mg PO DAILY 90 days #90 t abs 05/29/25 Allergies Allergy/AdvReac Type Severity Reaction Status Date / Time codeine Allergy Severe ALGY-Anaphy Verified 03/13/25 06:38 laxis Review of Systems General: Reports: 10 or more systems reviewed and unremarkable except in HPI and below Const: Denies: fever(s), chills or fatigue Eyes: Denies: change in vision ENMT: Denies: throat pain, ear or mastoid pain or nasal discharge Card: Denies: chest pain, palpitations, swelling of feet/ankles or lightheadedness Resp: Denies: dyspnea, productive cough or wheezing GI: Denies: abdominal pain, nausea, vomiting, diarrhea or constipation : Denies: flank pain, difficulty voiding, dysuria or urinary frequency Musc: Denies: neck pain, back pain or joint pain Skin/Breast: Denies: rash Neuro: Denies: headache(s), numbness in extremities or weakness in extremities Psych: Reports: anxiety and depression; Denies: visual hallucinations, auditory hallucinations, tactile hallucinations, suicidal ideation or homicidal ideation PFS ED PFSH: Medical History Immunization counseling High risk medication use Seropositive rheumatoid arthritis of multiple sites Carpal tunnel syndrome of right wrist Elevated rheumatoid factor Family history of rheumatoid arthritis Depression Left rotator cuff tear Surgical History Hx of excision of mass 07/26 excision subcutaneous mass of back Dr Fairchild Social History Smoking and tobacco/nicotine status: current every day tobacco/nicotine user cigarettes Packs smoked per day: 0.5 Alcohol intake: never Substance/Drug Use: never Current gender identity: Female Female Reproductive History: Spontaneous abortions: No Physical Exam Const: COMMON NORMALS: no acute distress and no limitations GENERAL APPEARANCE: cooperative, comfortable and well developed ORIENTATION/CONSCIOUSNESS: Yes awake HENMT: COMMON NORMALS: normocephalic, atraumatic and hearing grossly normal bilaterally HEAD & SCALP: normocephalic and atraumatic Eye: COMMON NORMALS: Equal, round and reactive pupils present, EOMs intact bilaterally and conjunctivae normal CONJUNCTIVA: Yes conjunctivae normal PUPIL: Yes Equal, round and reactive pupils present Neck/C-Spine: COMMON NORMALS: full ROM, supple and no JVD Resp: COMMON NORMALS: normal respiratory effort, No retractions, No use of accessory muscles and clear to auscultation bilaterally AUSCULTATION: clear to auscultation bilaterally Cardio: COMMON NORMALS: no JVD, regular rate, regular rhythm, No clicks present (Cardio), No murmurs present (Cardio) and No rub (Cardio) RATE: regular rate RHYTHM: regular rhythm Extremity: COMMON NORMALS: normal to inspection, full ROM and capillary refill normal Psych: COMMON NORMALS: mental status grossly normal, Normal thought process present and speech normal APPEARANCE: Yes grossly normal ATTITUDE: Yes calm ACTIVITY/MOTOR BEHAVIOR: Yes appropriate eye contact SPEECH: Yes normal speech MOOD & AFFECT: Yes euthymic mood THOUGHT PROCESS: Normal thought process present THOUGHT CONTENT: No Suicidality present, No Homicidality present and No Hallucination(s) present Skin: COMMON NORMALS: no rashes or lesions noted GENERAL SKIN EXAM: no rashes or lesions noted Course Vital Signs: Vital signs: Vital Signs Temperature 98.7 F 08/10/25 17:50 Pulse Rate 93 08/10/25 17:50 Respiratory Rate 16 08/10/25 17:50 Blood Pressure 104/68 08/10/25 17:50 Pulse Oximetry 96 08/10/25 17:50 Oxygen Delivery Me thod Room Air 08/10/25 17:50 MDM - Psych Medical Decision Making Patient is interviewed and mental health evaluation enacted. Arrived by ambulance due to reported suicidal ideations, she had told me that she made these comments in order to get out of the situation and she did not want a BM. Notes that she is not suicidal has no plan and she has no previous visits here in the emergency department for suicidal ideations. She does have a history of depression, states that she takes medications for this, citalopram, and thinks that it may not be working. However she does have [facility] follow-up and appointment coming up. I did speak with Dr. Gamboa, agreeing that with this history and presentation this can follow-up reliably outpatient if patient is comfortable with this. No affidavits on patient's chart, no medical hold. She is discharged at this time told to return immediately if she does have any suicidal thoughts or specific plan. She agrees with this at this time. Lab Data Laboratory Results Urine Opiates Screen Negative ng/mL (Negative) 08/10/25 17:45 Ur Barbiturates Screen Negative ng/mL (Negative) 08/10/25 17:45 Ur Phencyclidine Scrn Negative ng/mL (Negative) 08/10/25 17:45 Ur Amphetamines Screen Negative ng/mL (Negative) 08/10/25 17:45 U Benzodiazepines Scrn Negative ng/mL (Negative) 08/10/25 17:45 Urine Cocaine Screen Negative ng/mL (Negative) 08/10/25 17:45 U Marijuana (THC) Screen Negative ng/mL (Negative) 08/10/25 17:45 No radiology studies performed this visit Discharge Plan Discharge Patient Disposition: Home Clinical Impression: Depression Qualifiers: Depression Type: persistent depressive disorder Qualified Code(s): F34.1 - Dysthymic disorder Condition: Stable Prescriptions: No Action omeprazole 20 mg capsule,delayed release(DR/EC) 20 mg PO DAILY Qty: 30 3RF Combivent Respimat 20-100 mcg/actuation mist 1 puff inhalation QID PRN (Reason: shortness of breath or wheezing) Qty: 4 5RF Rx Instructions: space evenly during waking hours ibuprofen 800 mg tablet 800 mg PO Q8H Qty: 60 5RF trazodone 50 mg tablet 25 mg PO .at bedtime Qty: 30 5RF methotrexate sodium 2.5 mg tablet 15 mg PO Q7D Qty: 30 3RF folic acid 1 mg tablet 1 mg PO DAILY Qty: 30 3RF prednisone 10 mg tablet See Rx Instructions .Route .COMPLEX Qty: 90 1RF Rx Instructions: 4tabs QD x7days, 3tabs QD x7days, 2tabs QD x7days, then stay on 1 tab daily citalopram 20 mg tablet 20 mg PO DAILY 90 Days Qty: 90 0RF Discharge Orders: Discharge ED (Routine); Ordered 08/10/25 Ordered By: Pavel Burrell Referrals: Che Gamboa MD [Primary Care Provider, Family Practice] Patient Instructions: Patient Portal & Tram Instructions Activity Restrictions/Additional Instructions: Please follow-up with [facility] as we have discussed. If you develop any suicidal thoughts, homicidal thoughts, or any hallucinations please return immediately to the emergency department as we discussed as well. Please continue taking your medications as prescribed. Print Language: Indonesian Coding Level of Care Code ED Banking Supervisor for Yamilex Padilla
[2025-08-10 18:11] LABS: PCP Screen Urine Negative (Negative)
== END 2025-08-10 18:05 | disposition home or self-care (01) ==
PROVIDERS: Emergency Provider Physician Assistant; PCP Family Medicine
DX: F34.1 Dysthymic disorder (principal); F17.210 Nicotine dependence, cigarettes, uncomplicated
CPT/HCPCS: 80306; 99283